=== PATIENT | female | born 1975 | race Caucasian/White ===

== ENCOUNTER 2023-01-12 17:38 | Emergency (ER) | payer MEDICARE, OTHER ==
[2023-01-12] MEDS ORDERED: FLUTICASONE 50MCG/SPRAY NASAL 16GM EA NOSTRIL STA (17:52)
--- NOTE | 2023-01-12 18:26 | XR ---
EXAMINATION TYPE: XR chest 2V DATE OF EXAM: 01/12/2023 6:21 PM COMPARISON: None TECHNIQUE: XR chest 2V . CLINICAL INDICATION:Female, 47 years old with history of SOB; FINDINGS: Lungs/Pleura: There is no evidence of pleural effusion, focal consolidation, or pneumothorax. Pulmonary vascularity: Unremarkable. Heart/mediastinum: Cardiomediastinal silhouette is unremarkable. Musculoskeletal: Multiple level degenerative disc disease changes seen throughout the spine. IMPRESSION: No acute cardiopulmonary disease/process.
[2023-01-12 18:57] VITALS: BP 125/81; RESP 12
[2023-01-12] MEDS ORDERED: AZITHROMYCIN 500 MG TAB PO STA (18:58)
--- NOTE | 2023-01-12 19:00 | ED ---
URI HPI - General Chief Complaint: Upper Respiratory Infection Stated Complaint: bronchitis Time Seen by Provider: 01/12/23 17:44 Source: patient Mode of arrival: ambulatory Limitations: no limitations - History of Present Illness Initial Comments: Patient is a 47-year-old female who presents to the emergency department for cough. Patient reports cough and congestion for the past 2 days but states she has had intermittent productive cough with white/yellow for the past couple months. She denies fever and chills. Patient does feel a little short of breath. Denies leg pain and swelling. No chest pain. No nausea or vomiting. Patient is a tobacco user she smokes around 7 cigarettes daily. She denies history of COPD and asthma. - Related Data Home Medications Medication Instructions Recorded Confirmed Acetaminophen Tab [Tylenol] 650 mg PO QID 12/13/22 12/13/22 Doxycycline Monohydrate [Monodox] 100 mg PO BID 12/13/22 12/13/22 Fluconazole [Diflucan] 150 mg PO DIRECTED 12/13/22 12/13/22 Fluticasone Nasal [place] [Flonase 1 - 2 spray EA NOSTRIL DAILY PRN 12/13/22 12/13/22 Nasal [place]] Ibuprofen [Motrin Ib] 400 mg PO TID 12/13/22 12/13/22 Sertraline [Zoloft] 100 mg PO BID@0900,1700 12/13/22 12/13/22 busPIRone HCl [Buspar] 10 mg PO TID 12/13/22 12/13/22 clindamycin HCL [Cleocin] 150 mg PO TID 12/13/22 12/13/22 traZODone HCL 150 mg PO HS PRN 12/13/22 12/13/22 Previous Rx's Medication Instructions Recorded LORazepam [Ativan] 1 mg PO DAILY PRN 2 Days #2 tab 12/13/22 Tolnaftate [Tinactin] 1 applic TOPICAL DAILY #30 gram 12/13/22 Azithromycin [Zithromax Z Pack] 1 tab PO DIRECTED #6 tab 01/12/23 Allergies Allergy/AdvReac Type Severity Reaction Status Date / Time adhesive Allergy Rash/Hives Verified 01/12/23 17:44 chlorhexidine Allergy Rash/Hives Verified 01/12/23 17:44 [From ChloraPrep Clear] isopropyl alcohol Allergy Rash/Hives Verified 01/12/23 17:44 [From ChloraPrep Clear] pregabalin [From Lyrica] Allergy Swelling Verified 01/12/23 17:44 Review of Systems ROS Statement: Those systems with pertinent positive or pertinent negative responses have been documented in the HPI. ROS Other: All systems not noted in ROS Statement are negative. Past Medical History Past Medical History: Fibromyalgia, GERD/Reflux, Hypertension, Rheumatoid Arthritis (RA) History of Any Multi-Drug Resistant Organisms: None Reported Past Surgical History: No Surgical Hx Reported Past Psychological History: Anxiety, Bipolar, Depression Smoking Status: Current every day smoker Past Alcohol Use History: Daily, Heavy Past Drug Use History: Cocaine, Marijuana General Exam Limitations: no limitations General appearance: alert, in no apparent distress Eye exam: Present: normal appearance, PERRL, EOMI. Absent: scleral icterus, conjunctival injection, periorbital swelling Neck exam: Present: normal inspection. Absent: tenderness, meningismus, lymphadenopathy Respiratory exam: Present: normal lung sounds bilaterally. Absent: respiratory distress, wheezes, rales, rhonchi, stridor Cardiovascular Exam: Present: regular rate, normal rhythm, normal heart sounds. Absent: systolic murmur, diastolic murmur, rubs, gallop, clicks Neurological exam: Present: alert, oriented X3, CN II-XII intact Psychiatric exam: Present: normal affect, normal mood Skin exam: Present: warm, dry, intact, normal color. Absent: rash Course Vital Signs 01/12/23 01/12/23 01/12/23 17:42 17:50 18:56 Temperature 98.4 F Pulse Rate 71 62 Respiratory 20 14 12 Rate Blood Pressure 139/80 125/81 O2 Sat by Pulse 99 97 Oximetry 01/12/23 19:10 Temperature 97.9 F Pulse Rate 76 Respiratory Rate Blood Pressure O2 Sat by Pulse 99 Oximetry Medical Decision Making - Medical Decision Making Was pt. sent in by a medical professional or institution (, PA, FUR TRIMMING MACHINE OPERATOR, urgent care, hospital, or long-term...) When possible be specific @ -No Did you speak to anyone other than the patient for history (EMS, parent, family, police, friend...)? What history was obtained from this source @ -No Did you review nursing and triage notes (agree or disagree)? Why? @ -I reviewed and agree with nursing and triage notes Were old charts reviewed (outside hosp., previous admission, EMS record, old EKG, old radiological studies, urgent care reports/EKG's, long-term records)? Report findings @ -No old charts were reviewed Differential Diagnosis (chest pain, altered mental status, abdominal pain women, abdominal pain men, vaginal bleeding, weakness, fever, dyspnea, syncope, headache, dizziness, GI bleed, back pain, seizure, CVA, palpatations, mental health)? @ -Differential Dyspnea: Upper respiratory infection, bronchitis, Coronary syndrome, arrhythmia, tamponade, asthma, COPD, pulmonary embolism, pneumonia, pneumothorax, pulmonary effusion, anaphylaxis, diabetic ketoacidosis, flailed chest, pulmonary contusion, diaphragmatic rupture, anemia, neuromuscular, this is not meant to be an all-inclusive list. EKG interpreted by me (3pts min.). @ -As above X-rays interpreted by me (1pt min.). @ -Yes, chest x-ray negative for acute process CT interpreted by me (1pt min.). @ -None done U/S interpreted by me (1pt. min.). @ -None done What testing was considered but not performed or refused? (CT, X-rays, U/S, labs)? Why? @ -None What meds were considered but not given or refused? Why? @ -None Did you discuss the management of the patient with other professionals (professionals i.e. , PA, FUR TRIMMING MACHINE OPERATOR, lab, RT, psych nurse, social contact worker, portable sawyer, teacher, public health service officer, case monitor)? Give summary @ -No Was smoking cessation discussed for >3mins.? @ -I discussed smoking cessation for greater than 3 minutes. The risk of smoking were discussed with the patient including but not limited to risks of cancer, stroke, coronary artery disease and COPD. Also discussed with patient were multiple methods of quitting smoking. Lastly we discussed the financial cost of smoking. Was critical care preformed (if so, how long)? @ -No Were there social determinants of health that impacted care today? How? (Homelessness, low income, unemployed, alcoholism, drug addiction, transportation, low edu. Level, literacy, decrease access to med. care, intermediate, rehab)? @ -No Was there de-escalation of care discussed even if they declined (Discuss DNR or withdrawal of care, Hospice)? DNR status @ -No What co-morbidities impacted this encounter? (DM, HTN, Smoking, COPD, CAD, Cancer, CVA, ARF, Chemo, Hep., AIDS, mental health diagnosis, sleep apnea, morbid obesity)? @ -None Was patient admitted / discharged? Hospital course, mention meds given and route, prescriptions, significant lab abnormalities, going to OR and other pertinent info. @ -Discharged. Patient has upper respiratory symptoms with intermittent cough for the past couple months. She is a smoker. Lung sounds are normal no hypoxia. Chest x-ray interpreted by myself/radiology no acute process. Given the duration of patient's symptoms along with smoking history patient will be treated with a Z-Jose Alejandro. She is encouraged to establish care with a primary care provider and smoking cessation was recommended Undiagnosed new problem with uncertain prognosis? @ -No Drug Therapy requiring intensive monitoring for toxicity (Heparin, Nitro, Insulin, Cardizem)? @ -No Were any procedures done? @ -No Diagnosis/symptom? @ -Bronchitis Acute, or Chronic, or Acute on Chronic? @ -Acute on chronic Uncomplicated (without systemic symptoms) or Complicated (systemic symptoms)? @ -Uncomplicated Side effects of treatment? @ -No Exacerbation, Progression, or Severe Exacerbation? @ -No Poses a threat to life or bodily function? How? (Chest pain, [place], [place], pneumonia, PE, COPD, DKA, ARF, appy, cholecystitis, CVA, Diverticulitis, Homicidal, Suicidal, threat to staff... and all critical care pts) @ -No Dr. Blakely is my attending - Lab Data Lab Results 01/12/23 Range/Units 18:13 Influenza Type A (PCR) Not Detected (Not Detectd) Influenza Type B (PCR) Not Detected (Not Detectd) RSV (PCR) Not Detected (Not Detectd) SARS-CoV-2 (PCR) Not Detected (Not Detectd) Disposition Clinical Impression: Bronchitis Disposition: HOME SELF-CARE Condition: Good Instructions (If sedation given, give patient instructions): Acute Bronchitis (ED) Additional Instructions: Take medication as directed. It is important to establish care with a primary doctor and stop smoking tobacco. Return to the emergency department if you experience new, concerning, or worsening symptoms. Prescriptions: Azithromycin [Zithromax Z Pack] 1 tab PO DIRECTED #6 tab Is patient prescribed a controlled substance at d/c from ED?: No Referrals: Nonstaff,Physician [Primary Care Provider] - 1-2 days
[2023-01-12 19:12] VITALS: PULSE 76; TEMP 97.9
== END 2023-01-12 19:12 | disposition home or self-care (01) ==
LOC: EC 17:38
DX: J40 Bronchitis, not specified as acute or chronic (principal); F31.9 Bipolar disorder, unspecified; F41.9 Anxiety disorder, unspecified; I10 Essential (primary) hypertension; F17.210 Nicotine dependence, cigarettes, uncomplicated; Z79.1 Long term (current) use of non-steroidal anti-inflammatories (NSAID); Z79.899 Other long term (current) drug therapy; Z20.822 Contact with and (suspected) exposure to COVID-19; Z88.8 Allergy status to other drugs, medicaments and biological substances
CPT/HCPCS: 71046; 87636; 99283